=== PATIENT | male | born 1950 | race Hispanic/Latino ===

== ENCOUNTER → 2022-02-25 | Outpatient (CLI) | payer MEDICARE ==
[~2022-02-25] MED LIST: ANDROGEL5 GM TOP; DILTIAZEM HCL360 MG PO; FENOFIBRATE145 MG PO; GLIPIZIDE5 MG PO; LEVEMIR100 UNIT/1 SC; LOSARTAN-HCTZ1 EAC1 PO; LOSARTAN-HCTZ1 EAC2 PO; METFORMIN HCL500 MG PO; NOVOLOG100 UNITS1 SC; PYLERA CAPSULE1 EACH PO; TRAVATAN Z5 ML OU; TRICOR145 MG PO; VICTOZA 3-0.6 MG/0.1 IM; VYTORIN 10-801 EACH PO
== END ==
LOC: RAD 15:20
PROVIDERS: ATTEND Family Medicine
DX: J90 Pleural effusion, not elsewhere classified (principal); R60.9 Edema, unspecified
CPT/HCPCS: 71046

== ENCOUNTER 2022-08-27 12:26 | Observation (INO) | payer MEDICARE ==
[~2022-08-27] VITALS: Ht 172.7 cm; Wt 113.4 kg
[2022-08-27] MEDS ORDERED: SODIUM CHLORIDE 0.9% 1000ML 1,000 ML IV STA ×2 (13:04→14:40)
[2022-08-27 13:17] LABS: BASOPHILS # (AUTO) 0.1 (0.0-0.1); BASOPHILS % 0.8 % (0.0-1.0); EOSINOPHILS # (AUTO) 0.2 (0.0-0.4); EOSINOPHILS % 1.5 % (0.0-6.0); HEMATOCRIT 33.9 % (38.2-49.6); HEMOGLOBIN 10.8 g/dL (14.0-18.0); LYMPHOCYTES # (AUTO) 1.8 (1.0-3.2); LYMPHOCYTES % 17.1 % (18.0-39.1); MEAN CORPUSCULAR HEMOGLOBIN 28.1 pg (28-32); MEAN CORPUSCULAR HGB CONC 31.9 g/dL (31-35); MEAN CORPUSCULAR VOLUME 88.1 fL (81-99); MONOCYTES # (AUTO) 0.7 (0.2-0.8); MONOCYTES % 6.7 % (4.4-11.3); NEUTROPHILS # (AUTO) 7.9 (2.1-6.9); NEUTROPHILS % 73.7 % (38.7-80.0); PLATELET COUNT 251 x10e3/uL (140-360); RED BLOOD COUNT 3.85 x10e6/uL (4.3-5.7); RED CELL DISTRIBUTION WIDTH 15.9 % (11.7-14.4)
[2022-08-27 13:27] LABS: INR 1.04; PROTHROMBIN TIME 14.5 seconds (11.9-14.5)
[2022-08-27 13:28] LABS: PARTIAL THROMBOPLASTIN TIME 27.8 seconds (23.8-35.5)
[2022-08-27 13:37] LABS: ALANINE AMINOTRANSFERASE 28 IU/L (0-55); ALBUMIN 3.8 g/dL (3.5-5.0); ALKALINE PHOSPHATASE 78 IU/L (40-150); ANION GAP 24.1 mmol/L (8-16); BLOOD UREA NITROGEN 121 mg/dL (7-26); BUN/CREATININE RATIO 32 (6-25); CALCIUM 10.4 mg/dL (8.4-10.2); CARBON DIOXIDE 31 mmol/L (22-29); CHLORIDE 90 mmol/L (98-107); CREATINE KINASE 116 IU/L (30-200); CREATININE, SERUM 3.82 mg/dL (0.72-1.25); GLUCOSE 152 mg/dL (74-118); MAGNESIUM 2.5 MG/DL (1.3-2.1); POTASSIUM 3.1 mmol/L (3.5-5.1); SODIUM 142 mmol/L (136-145)
[2022-08-27] MEDS ORDERED: SODIUM CHLORIDE 0.9% 1000ML 1,000 ML IV SCH (14:30)
[2022-08-27] MEDS ORDERED: ONDANSETRON HCL INJ 2MG/ML 2ML 2 MG/ML VIAL IV PRN ×2 (14:30→15:15)
[2022-08-27] MEDS ORDERED: DEXTROSE 50% SYRINGE 50 ML IV PRN (15:15)
[2022-08-27] MEDS ORDERED: CLONIDINE HCL 0.1 MG TAB PO PRN (15:15)
[2022-08-27 15:24] LABS: CLARITY,URINE CLEAR (CLEAR); COLOR,URINE YELLOW (YELLOW); LEUKOCYTE ESTERASE ,URINE NEGATIVE (NEGATIVE); NITRITE,URINE NEGATIVE (NEGATIVE)
[2022-08-27 15:26] LABS: KETONES,URINE NEGATIVE (NEGATIVE); PROTEIN,URINE DIPSTICK NEGATIVE (NEGATIVE); URINE UROBILINOGEN 0.2 mg/dL (0.2 - 1)
[2022-08-27] MEDS ORDERED: POTASSIUM CHLORIDE 10MEQ EA PO ONE (15:30)
[2022-08-27 15:40] LABS: BACTERIA,URINE MODERATE /HPF; EPITHELIAL CELLS,URINE MANY /LPF; RBC,URINE 21-50 /HPF (0-5)
[2022-08-27 15:41] LABS: TRANSITIONAL EPI CELLS,URINE MODERATE
[2022-08-27] MEDS: FAMOTIDINE 20 MG TAB PO SCH (17:15)
[2022-08-27] MEDS: INSULIN REGULAR, HUMAN 100 UNIT/1 ML SQ SCH ×2 (17:16→21:00)
[2022-08-27 19:38] LABS: CREATINE KINASE MB 1.1 ng/mL (0-5.0)
[2022-08-27 20:00] VITALS: BP 104/46
[2022-08-27 21:00] VITALS: BP 114/58
[2022-08-27] MEDS: INSULIN GLARGINE 100 UNITS/ML VIAL SQ SCH (21:00)
[2022-08-27] MEDS: TRAVOPROST(OPTH) 2.5 ML BTL OP SCH (22:04)
[2022-08-27] MEDS: DEXTROSE 5%/0.45% SOD CHL 1,000 ML IV SCH (22:05)
[2022-08-27] MEDS: HEPARIN SOD (PORCINE) 5,000 UNIT/ML VIAL SC SCH (22:20)
[2022-08-28] VITALS (8 sets, daily range): BP systolic 111–162; BP diastolic 50–81
[2022-08-28] MEDS ORDERED: ALPHAGAN P5 ML OD (02:16)
[2022-08-28] MEDS ORDERED: ZETIA10 MG PO (02:16)
[2022-08-28] MEDS ORDERED: ASPIRIN81 MG PO (02:16)
[2022-08-28] MEDS ORDERED: SYNTHROID125 MCG PO (02:16)
[2022-08-28] MEDS ORDERED: ATORVASTATIN CA20 MG PO (02:16)
[2022-08-28] MEDS ORDERED: FAMOTIDINE20 MG PO (02:16)
[2022-08-28] MEDS ORDERED: FLOMAX0.4 MG PO (02:16)
[2022-08-28] MEDS ORDERED: CLOPIDOGREL75 MG PO (02:16)
[2022-08-28] MEDS ORDERED: FINASTERIDE5 MG PO (02:16)
[2022-08-28] MEDS ORDERED: ALLOPURINOL100 MG PO (02:16)
[2022-08-28] MEDS ORDERED: NEURONTIN100 MG PO (02:16)
[2022-08-28] MEDS ORDERED: PROAIR HFA INH8.5 GM INH (02:16)
[2022-08-28 02:56] LABS: CREATINE KINASE MB 0.9 ng/mL (0-5.0)
[2022-08-28] MEDS: DEXTROSE 5%/0.45% SOD CHL 1,000 ML IV SCH ×2 (03:15→16:13)
[2022-08-28 04:55] LABS: BASOPHILS # (AUTO) 0.1 (0.0-0.1); BASOPHILS % 1.1 % (0.0-1.0); EOSINOPHILS # (AUTO) 0.3 (0.0-0.4); EOSINOPHILS % 3.3 % (0.0-6.0); HEMATOCRIT 31.9 % (38.2-49.6); HEMOGLOBIN 10.2 g/dL (14.0-18.0); MEAN CORPUSCULAR HEMOGLOBIN 28.3 pg (28-32); MEAN CORPUSCULAR VOLUME 88.6 fL (81-99); MONOCYTES # (AUTO) 0.7 (0.2-0.8); MONOCYTES % 7.2 % (4.4-11.3); NEUTROPHILS % 66.1 % (38.7-80.0); PLATELET COUNT 211 x10e3/uL (140-360); RED CELL DISTRIBUTION WIDTH 15.6 % (11.7-14.4)
[2022-08-28 05:16] LABS: ALBUMIN 3.3 g/dL (3.5-5.0); ALBUMIN/GLOBULIN RATIO 0.9 (0.8-2.0); ANION GAP 17.1 mmol/L (8-16); CALCIUM 9.8 mg/dL (8.4-10.2); CREATININE, SERUM 2.65 mg/dL (0.72-1.25); POTASSIUM 3.1 mmol/L (3.5-5.1)
[2022-08-28 06:03] LABS: CREATINE KINASE MB 0.9 ng/mL (0-5.0)
[2022-08-28] MEDS: INSULIN REGULAR, HUMAN 100 UNIT/1 ML SQ SCH ×4 (08:00→20:32)
[2022-08-28] MEDS: FENOFIBRATE 145 MG TAB PO SCH (08:38)
[2022-08-28] MEDS: FAMOTIDINE 20 MG TAB PO SCH ×2 (08:38→17:24)
[2022-08-28] MEDS: ACETAMINOPHEN 325 MG TAB PO PRN ×2 (08:41→22:51)
[2022-08-28] MEDS: HEPARIN SOD (PORCINE) 5,000 UNIT/ML VIAL SC SCH (09:00)
[2022-08-28] MEDS ORDERED: BISACODYL 5 MG TAB EC PO ONE (17:30)
[2022-08-28] MEDS ORDERED: SODIUM CHLORIDE 0.9% 1000ML 1,000 ML IV SCH (19:00)
[2022-08-28] MEDS: TRAVOPROST(OPTH) 2.5 ML BTL OP SCH (20:31)
[2022-08-28] MEDS: INSULIN GLARGINE 100 UNITS/ML VIAL SQ SCH (21:16)
[2022-08-29] VITALS: BP 154/71
[2022-08-29 04:00] VITALS: BP 142/56
[2022-08-29 05:45] LABS: BASOPHILS # (AUTO) 0.1 (0.0-0.1); EOSINOPHILS # (AUTO) 0.3 (0.0-0.4); EOSINOPHILS % 2.9 % (0.0-6.0); HEMATOCRIT 34.6 % (38.2-49.6); HEMOGLOBIN 10.9 g/dL (14.0-18.0); LYMPHOCYTES # (AUTO) 2.1 (1.0-3.2); LYMPHOCYTES % 20.3 % (18.0-39.1); MEAN CORPUSCULAR HEMOGLOBIN 28.2 pg (28-32); MEAN CORPUSCULAR HGB CONC 31.5 g/dL (31-35); MEAN CORPUSCULAR VOLUME 89.4 fL (81-99); MONOCYTES # (AUTO) 0.7 (0.2-0.8); MONOCYTES % 6.9 % (4.4-11.3); NEUTROPHILS # (AUTO) 7.1 (2.1-6.9); NEUTROPHILS % 68.6 % (38.7-80.0); PLATELET COUNT 230 x10e3/uL (140-360); RED BLOOD COUNT 3.87 x10e6/uL (4.3-5.7); RED CELL DISTRIBUTION WIDTH 15.8 % (11.7-14.4)
[2022-08-29 06:03] LABS: ANION GAP 16.3 mmol/L (8-16); CALCIUM 9.6 mg/dL (8.4-10.2); CREATININE, SERUM 1.74 mg/dL (0.72-1.25); POTASSIUM 3.3 mmol/L (3.5-5.1)
[2022-08-29] MEDS: INSULIN REGULAR, HUMAN 100 UNIT/1 ML SQ SCH ×2 (08:04→11:30)
[2022-08-29] MEDS: FAMOTIDINE 20 MG TAB PO SCH (08:04)
[2022-08-29 08:12] VITALS: BP 146/59
[2022-08-29] MEDS: FENOFIBRATE 145 MG TAB PO SCH (10:35)
[2022-08-29] MEDS ORDERED: POTASSIUM CHLORIDE 20 MEQ TAB CR PO NR (11:45)
[2022-08-29 11:47] VITALS: BP 155/50
[2022-08-29 12:18] VITALS: BP 155/50
== END 2022-08-29 15:55 | disposition home or self-care (01) ==
LOC: ER 12:44 → ERHOLD 14:28 → INTOOBSV 14:28 → MED/SURG 18:00
PROVIDERS: ADMIT Internal Medicine; ATTEND Internal Medicine
DX: R42 Dizziness and giddiness (principal); I25.10 Atherosclerotic heart disease of native coronary artery without angina pectoris; Z95.1 Presence of aortocoronary bypass graft; E78.5 Hyperlipidemia, unspecified; E11.69 Type 2 diabetes mellitus with other specified complication; E03.9 Hypothyroidism, unspecified; N17.9 Acute kidney failure, unspecified; N39.0 Urinary tract infection, site not specified; J18.9 Pneumonia, unspecified organism; Z20.822 Contact with and (suspected) exposure to COVID-19
CPT/HCPCS: 0223U; 36415 ×3; 51700; 70450; 71045; 71250; 72125; 76770; 80048; 80053 ×2; 81001; 82550 ×2; 82553 ×2; 82948 ×3; 83036; 83605; 83735; 83880; 84443; 84484 ×2; 85025 ×3; 85610; 85730; 87040; 87086; 93005; 94799; 97116; 97161; 99284; G0378 ×3; J0456 ×3; J0696 ×3; J1644; J1815; J1817; J7030 ×2; J7050 ×3